=== PATIENT | female | born 1975 | race Caucasian/White ===

== ENCOUNTER 2017-04-08 05:25 | Observation (INO) | payer OTHER ==
[~2017-04-08] VITALS: Ht 167.6 cm; Wt 120.1 kg
[~2017-04-08 05:25] MED LIST: AMIT10TA PO; PANT40TA5 PO
[2017-04-08] MEDS ORDERED: LIDOCAINE 1%, 2ML ONE (06:05)
[2017-04-08] MEDS ORDERED: THROMBIN 5,000 UNIT VIAL TP ONE (06:06)
[2017-04-08] MEDS ORDERED: BUPIVACAINE/PF 0.5% ONE (06:06)
[2017-04-08] MEDS ORDERED: EPINEPHRINE 1 MG/ML, 1ML ONE (06:07)
[2017-04-08] MEDS ORDERED: BACITRACIN 50,000 UNIT ONE (06:07)
[2017-04-08 06:14] LABS: HCG UR SG 1.014 (1.003-1.030)
[2017-04-08] MEDS ORDERED: LACTATED RINGERS 1,000 ML IV SCH (06:21)
[2017-04-08 06:23] VITALS: BP_SYST 164
[2017-04-08] MEDS ORDERED: MIDAZOLAM 1 MG/ML, 2ML ONE (06:26)
[2017-04-08] MEDS ORDERED: FENTANYL PF 250 MCG/5ML ONE (06:27)
[2017-04-08] MEDS ORDERED: LIDOCAINE 1%, 2ML SQ PRN (06:30)
[2017-04-08] MEDS ORDERED: PROPOFOL 100 ML ONE (06:38)
[2017-04-08] MEDS ORDERED: ROCURONIUM 10 MG/ML,10ML ONE (06:47)
[2017-04-08] MEDS ORDERED: CEFAZOLIN 1,000 MG ONE (06:47)
[2017-04-08] MEDS ORDERED: SUCCINYLCHOLINE 20 MG/ML, 10ML ONE (06:47)
[2017-04-08] MEDS ORDERED: ONDANSETRON 2MG/ML, 2ML ONE (06:47)
[2017-04-08] MEDS ORDERED: DEXAMETHASONE 4 MG/ML, 5ML ONE (06:47)
[2017-04-08] MEDS ORDERED: hydrALAzine 20 MG/ML, 1ML IV PRN (08:00)
[2017-04-08] MEDS ORDERED: MEPERIDINE/PF 25MG/0.5ML IVPush PRN (08:00)
[2017-04-08] MEDS ORDERED: DIAZEPAM 5 MG/ML, 2ML IVPush PRN (08:00)
[2017-04-08] MEDS ORDERED: FENTANYL PF 100 MCG/2ML IV PRN (08:00)
[2017-04-08] MEDS ORDERED: MIDAZOLAM 1 MG/ML, 2ML IV PRN (08:00)
[2017-04-08] MEDS ORDERED: PROMETHAZINE 25 MG/ML, 1ML IV PRN (08:00)
[2017-04-08] MEDS ORDERED: LABETALOL 5MG/ML, 20ML IV PRN (08:00)
[2017-04-08] MEDS ORDERED: OXYcodone 5 MG/5 ML ORAL.SOL UDC PO PRN (08:00)
[2017-04-08] MEDS ORDERED: ONDANSETRON 2MG/ML, 2ML IVPush PRN (08:00)
[2017-04-08] MEDS ORDERED: HYDROmorphone 2 MG/ML, 1ML ONE (08:44)
[2017-04-08] MEDS ORDERED: OXYcodone 5 MG/5 ML ORAL.SOL UDC ONE (08:45)
[2017-04-08] MEDS: HYDROmorphone 1 MG/ML, 1ML IV PRN ×3 (08:50→09:07)
[2017-04-08] MEDS ORDERED: METHOCARBAMOL 750 MG TABLET PO PRN (09:00)
[2017-04-08] MEDS ORDERED: OXYcodone/APAP 5/325MG TABLET PO PRN (09:00)
[2017-04-08] MEDS ORDERED: DIPHENHYDRAMINE 50 MG/ML, 1ML IVPush PRN (09:00)
[2017-04-08] MEDS: CEFAZOLIN PMX 1GM/50ML 50 ML IVPB SCH ×2 (09:00→18:27)
[2017-04-08] MEDS ORDERED: PROMETHAZINE 25 MG/ML, 1ML IM PRN (09:00)
[2017-04-08] MEDS ORDERED: MAGNESIUM HYDROXIDE 8%, 30ML UDC PO PRN (09:00)
[2017-04-08] MEDS ORDERED: morphine SULFATE 10 MG/ML, 1ML IVPush PRN (09:00)
[2017-04-08] MEDS ORDERED: PHARMACY MAY ADJ FOR RENAL FX MC PRN (09:00)
[2017-04-08] MEDS: SODIUM CHLORIDE FLUSH 10ML SYR IVF SCH ×2 (09:00→21:00)
[2017-04-08] MEDS ORDERED: LABETALOL 5MG/ML, 20ML IVPush PRN (09:00)
[2017-04-08] MEDS ORDERED: SENNA/DOCUSATE TABLET PO PRN (09:00)
[2017-04-08] MEDS ORDERED: DIPHENHYDRAMINE 50 MG CAPSULE PO PRN (09:00)
[2017-04-08] MEDS ORDERED: BISACODYL 10 MG SUPP PR PRN (09:00)
[2017-04-08 09:51] VITALS: BP 136/96
[2017-04-08] MEDS: D5%-0.9% NACL+KCL 20MEQ 1,000 ML IV SCH ×2 (13:17→23:00)
[2017-04-08] MEDS: ONDANSETRON 2MG/ML, 2ML IVPush PRN ×2 (13:22→20:12)
[2017-04-08 14:59] VITALS: BP 128/88
[2017-04-08] MEDS ORDERED: methylPREDNISolone*ACETATE* 80 MG/ML IM ONE (18:00)
[2017-04-08 20:00] VITALS: BP 127/87
[2017-04-08] MEDS ORDERED: PANTOPROZOLE 40MG TABLET PO SCH (21:00)
[2017-04-08] MEDS ORDERED: AMITRIPTYLINE 10 MG TABLET PO SCH (21:00)
[2017-04-08] MEDS: HYDROcodone/APAP 5/325 TABLET PO PRN (21:20)
[2017-04-09 01:53] VITALS: BP 119/72
[2017-04-09 04:20] VITALS: BP 113/75
[2017-04-09 07:01] VITALS: BP 119/80
[2017-04-09] MEDS: D5%-0.9% NACL+KCL 20MEQ 1,000 ML IV SCH (07:33)
[2017-04-09] MEDS ORDERED: SCOPOLAMINE 1MG PATCH TD ONE (08:00)
[2017-04-09] MEDS: SODIUM CHLORIDE FLUSH 10ML SYR IVF SCH (08:47)
[2017-04-09] MEDS: HYDROcodone/APAP 5/325 TABLET PO PRN (08:54)
[2017-04-09 10:33] VITALS: BP 121/81
[2017-04-09] MEDS ORDERED: HYDR-3240 PO (10:51)
[2017-04-09] MEDS ORDERED: CEPH-368 PO (10:51)
[2017-04-09] MEDS ORDERED: METH750T87 PO (10:51)
== END 2017-04-09 11:30 | disposition home or self-care (01) ==
LOC: INTOOBSV 05:25 → ORIP 05:25 → 4NOR 09:45
PROVIDERS: ADMIT Neurological Surgery; ATTEND Neurological Surgery
DX: M50.121 Cervical disc disorder at C4-C5 level with radiculopathy (principal); M48.02 Spinal stenosis, cervical region; M53.2X2 Spinal instabilities, cervical region; G89.29 Other chronic pain; G44.209 Tension-type headache, unspecified, not intractable; M54.30 Sciatica, unspecified side; M79.602 Pain in left arm; Z87.891 Personal history of nicotine dependence; Z68.41 Body mass index [BMI] 40.0-44.9, adult
CPT/HCPCS: 20937; 22551; 22853; 72040; 81025; 96365; 96372; 96375; 96376; 97161; 97165; C1713; C1762; G0378; J0171; J0330; J0690; J1040; J1100; J1170; J2250; J2270; J2405; J2704; J3010; J3480; J3490; J7120

== ENCOUNTER → 2017-05-13 | Outpatient (CLI) | payer OTHER ==
[~2017-05-13] MED LIST changes: +CEPH-368 PO; +HYDR-3240 PO; +METH750T87 PO
== END | disposition home or self-care (01) ==
LOC: RAD 13:23
PROVIDERS: ATTEND Physician Assistant Surgical
DX: M54.2 Cervicalgia (principal); Z98.890 Other specified postprocedural states
CPT/HCPCS: 72040

== ENCOUNTER → 2017-06-22 | Outpatient (CLI) | payer OTHER | END | disposition home or self-care (01) | LOC: RAD 16:13 | PROVIDERS: ATTEND Physician Assistant Surgical | DX: M54.2 Cervicalgia (principal) | CPT/HCPCS: 72050 ==

== ENCOUNTER → 2017-09-22 | Outpatient (CLI) | payer OTHER | END | disposition home or self-care (01) | LOC: RAD 14:48 | PROVIDERS: ATTEND Physician Assistant Surgical | DX: M54.2 Cervicalgia (principal) | CPT/HCPCS: 72050 ==